=== PATIENT | female | born 1975 | race African-American/Black ===

== ENCOUNTER 2018-10-05 21:26 | Emergency (ER) | payer OTHER ==
[~2018-10-05] VITALS: Ht 172.7 cm; Wt 104.3 kg
[2018-10-05 21:37] VITALS: Ht 172.7 cm; Wt 104.3 kg
[2018-10-06 01:01] VITALS: BP 189/91
== END 2018-10-06 01:01 | disposition short-term general hospital (02) ==
LOC: ED 21:26
DX: S52.502A Unspecified fracture of the lower end of left radius, initial encounter for closed fracture (principal); Z88.1 Allergy status to other antibiotic agents; Z90.710 Acquired absence of both cervix and uterus; V00.131A Fall from skateboard, initial encounter; Y93.51 Activity, roller skating (inline) and skateboarding; Y92.89 Other specified places as the place of occurrence of the external cause; Y99.8 Other external cause status
CPT/HCPCS: G0500; J2001; J2060; J2270; J3490; Q0092